=== PATIENT | female | born 1980 | race Caucasian/White ===

== ENCOUNTER 2018-01-23 14:43 | Inpatient (IN) | payer MEDICAID ==
[~2018-01-23] VITALS: Ht 165.1 cm; Wt 58.7 kg
[~2018-01-23 14:43] MED LIST: ALPR2TAB2 PO; IRON SUPP; NAPR-850 PO; TRAZ-137 PO
[2018-01-23] MEDS ORDERED: ZIPRASIDONE 20 MG INJ IM ONE ×2 (16:40→17:00)
[2018-01-23] MEDS ORDERED: SODIUM CHLORIDE 0.9% 1,000ML IVBOLUS ONE (17:30)
[2018-01-23 17:38] LABS: MEAN CORPUSCULAR HEMOGLOBIN 33.7 pg (27.0-34.8); MEAN CORPUSCULAR HGB CONC 34.8 g/dL (32.4-35.8); MEAN CORPUSCULAR VOLUME 96.6 fL (80-100); MEAN PLATELET VOLUME 10.6 fL (7.4-10.4); PLATELET COUNT 235 x10^3/uL (130-400); RED BLOOD COUNT 4.49 x10^6/uL (3.82-5.3); RED CELL DISTRIBUTION WIDTH 12.9 % (9.6-15.2)
[2018-01-23 17:43] LABS: ALANINE AMINOTRANSFERASE 25 U/L (12-78); ALBUMIN 4.1 g/dL (3.4-5.0); ANION GAP 19 mmol/L (5-15); CALCIUM 9.1 mg/dL (8.5-10.1); CHLORIDE 102 mmol/L (98-107); CREATININE 0.59 mg/dL (0.55-1.02)
[2018-01-23 17:48] LABS: ALKALINE PHOSPHATASE 66 U/L (45-117); TOTAL PROTEIN 7.5 g/dL (6.4-8.2)
[2018-01-23 17:49] LABS: SALICYLATE LEVEL < 1.7 mg/dL (2.8-20.0)
[2018-01-23] MEDS ORDERED: POTASSIUM CHLORIDE 40 MEQ in SODIUM CHLORIDE 0.9% 500 ML IV ONE (18:00)
[2018-01-23 18:02] LABS: ACETAMINOPHEN < 2 mcg/mL (10-30)
[2018-01-23] MEDS ORDERED: NS + 40MEQ KCL 1,000 ML IV ONE (18:05)
[2018-01-23 18:07] LABS: BASOPHILS # (AUTO) 0.04 x10^3/uL (0-0.1); BASOPHILS % (AUTO) 0 % (0-1); EOSINOPHILS # (AUTO) 0.07 x10^3/uL (0-0.4); EOSINOPHILS % (AUTO) 1 % (1-7); LYMPHOCYTES # (AUTO) 6.88 x10^3/uL (1-3.4); LYMPHOCYTES % (AUTO) 54 % (22-44); MD SCAN; MONOCYTES # (AUTO) 0.89 x10^3/uL (0.2-0.8); MONOCYTES % (AUTO) 7 % (2-9); NEUTROPHILS # (AUTO) 4.88 x10^3/uL (1.8-6.8); NEUTROPHILS % (AUTO) 38 % (42-75)
[2018-01-23] MEDS ORDERED: ACETAMINOPHEN 325 MG TABLET PO PRN (19:00)
[2018-01-23] MEDS ORDERED: DOCUSATE 100 MG CAPSULE PO PRN (19:00)
[2018-01-23 19:17] VITALS: BP 90/54
[2018-01-23 19:48] LABS: MICROSCOPIC INDICATED
[2018-01-23 20:16] LABS: AMPHETAMINE SCREEN, URINE Negative (Negative); BARBITURATE SCREEN, URINE Negative (Negative); BENZODIAZEPINE SCREEN, URINE Negative (Negative); CANNABINOID SCREEN, URINE Negative (Negative); COCAINE SCREEN, URINE Negative (Negative); METHADONE SCREEN, URINE Negative (Negative); OPIATE SCREEN, URINE Negative (Negative)
[2018-01-23 20:18] LABS: CULTURE INDICATED? YES
[2018-01-23 21:30] VITALS: BP 90/54
[2018-01-23] MEDS: D5%-0.45NACL+KCL 20MEQ 1,000 ML IV SCH (22:22)
[2018-01-24 01:38] VITALS: BP 96/59
[2018-01-24 05:59] LABS: ANION GAP 12 mmol/L (5-15); CALCIUM 8.1 mg/dL (8.5-10.1); CHLORIDE 109 mmol/L (98-107)
[2018-01-24 06:00] LABS: CREATININE 0.48 mg/dL (0.55-1.02)
[2018-01-24 06:05] LABS: BASOPHILS # (AUTO) 0.04 x10^3/uL (0-0.1); BASOPHILS % (AUTO) 0 % (0-1); EOSINOPHILS # (AUTO) 0.05 x10^3/uL (0-0.4); EOSINOPHILS % (AUTO) 1 % (1-7); LYMPHOCYTES % (AUTO) 23 % (22-44); MD NO; MEAN CORPUSCULAR HEMOGLOBIN 32.9 pg (27.0-34.8); MEAN CORPUSCULAR VOLUME 96.9 fL (80-100); MEAN PLATELET VOLUME 10.9 fL (7.4-10.4); MONOCYTES # (AUTO) 0.23 x10^3/uL (0.2-0.8); MONOCYTES % (AUTO) 3 % (2-9); NEUTROPHILS # (AUTO) 6.19 x10^3/uL (1.8-6.8); NEUTROPHILS % (AUTO) 74 % (42-75); PLATELET COUNT 185 x10^3/uL (130-400); RED BLOOD COUNT 3.57 x10^6/uL (3.82-5.3); RED CELL DISTRIBUTION WIDTH 13.2 % (9.6-15.2)
[2018-01-24] MEDS: D5%-0.45NACL+KCL 20MEQ 1,000 ML IV SCH (06:26)
[2018-01-24] MEDS: POTASSIUM CHLORIDE 20 MEQ TAB.ER.PRT PO SCH ×2 (09:00→17:00)
[2018-01-24] MEDS ORDERED: MAGNESIUM SULFATE PMX 4GM/100M 100 ML IV ONE ×2 (09:00→13:00)
[2018-01-24] MEDS: ARIPIPRAZOLE 10 MG TABLET PO SCH (11:30)
[2018-01-24] MEDS: POTASSIUM CHLORIDE 20 MEQ in LACTATED RINGERS 1,000 ML IV SCH (12:42)
[2018-01-24] MEDS ORDERED: POTASSIUM PHOSPHATE 44 MEQ in SODIUM CHLORIDE 0.9% 500 ML IV ONE (14:30)
[2018-01-25] MEDS: POTASSIUM CHLORIDE 20 MEQ in LACTATED RINGERS 1,000 ML IV SCH ×3 (01:08→22:11)
[2018-01-25] MEDS: LORazepam 2 MG/ML, 1ML IVPush PRN ×2 (02:35→10:47)
[2018-01-25 05:02] VITALS: BP 100/61
[2018-01-25] MEDS: ARIPIPRAZOLE 10 MG TABLET PO SCH (09:00)
[2018-01-25 10:23] LABS: MEAN CORPUSCULAR HEMOGLOBIN 33.1 pg (27.0-34.8); MEAN CORPUSCULAR HGB CONC 34.5 g/dL (32.4-35.8); MEAN PLATELET VOLUME 10.2 fL (7.4-10.4); PLATELET COUNT 164 x10^3/uL (130-400); RED BLOOD COUNT 3.72 x10^6/uL (3.82-5.3); RED CELL DISTRIBUTION WIDTH 12.9 % (9.6-15.2)
[2018-01-25 10:33] LABS: ANION GAP 10 mmol/L (5-15); CALCIUM 8.7 mg/dL (8.5-10.1); CHLORIDE 107 mmol/L (98-107); CREATININE 0.35 mg/dL (0.55-1.02)
[2018-01-25 10:34] LABS: MD YES
[2018-01-25 10:37] LABS: LYMPH#(MANUAL) 1.68 x10^3/uL (1-3.4); LYMPHS% (MANUAL) 30 % (22-44); REACTIVE LYMPHS # (MANUAL) 0.17 x10^3/uL (0-0); REACTIVE LYMPHS % (MANUAL) 3 % (0-0)
[2018-01-25 10:39] LABS: <RBC MORPHOLOGY> NORMAL
[2018-01-25 10:40] LABS: <PLATELET ESTIMATE> ADEQUATE; <PLT MORPHOLOGY> NORMAL PLT MORPH; MONOS#(MANUAL) 0.39 x10^3/uL (0.3-2.7); MONOS% (MANUAL) 7 % (2-9); SEG#(MANUAL) 3.36 x10^3/uL (1.8-6.8); SEGS% (MANUAL) 60 % (42-75)
[2018-01-25 10:58] VITALS: BP 104/67
[2018-01-25 11:18] LABS: ALBUMIN 3.3 g/dL (3.4-5.0)
[2018-01-25 11:25] LABS: PREALBUMIN 7.9 mg/dL (20.0-40.0)
[2018-01-25 14:30] VITALS: BP 102/55
[2018-01-25] MEDS ORDERED: POTASSIUM CHLORIDE 20 MEQ TAB.ER.PRT PO ONE (14:30)
[2018-01-25] MEDS ORDERED: POTASSIUM PHOSPHATE 22 MEQ in SODIUM CHLORIDE 0.9% 500 ML IV ONE (14:30)
[2018-01-25 20:34] VITALS: BP 102/60
[2018-01-26 03:54] VITALS: BP 107/51
[2018-01-26] MEDS: POTASSIUM CHLORIDE 20 MEQ in LACTATED RINGERS 1,000 ML IV SCH (06:35)
[2018-01-26] MEDS: LORazepam 2 MG/ML, 1ML IVPush PRN ×3 (06:46→18:16)
[2018-01-26] MEDS: ARIPIPRAZOLE 10 MG TABLET PO SCH (09:00)
[2018-01-26 11:06] LABS: ANION GAP 8 mmol/L (5-15); CALCIUM 8.4 mg/dL (8.5-10.1); CHLORIDE 108 mmol/L (98-107); CREATININE 0.46 mg/dL (0.55-1.02)
[2018-01-26] MEDS ORDERED: POTASSIUM PHOSPHATE 22 MEQ in SODIUM CHLORIDE 0.9% 500 ML IV ONE (12:30)
[2018-01-26] MEDS ORDERED: MAGNESIUM SULFATE PMX 4GM/100M 100 ML IV ONE (12:30)
[2018-01-26] MEDS: MAGNESIUM OXIDE 400 MG TABLET PO SCH (12:30)
[2018-01-26 14:30] VITALS: BP 101/58
[2018-01-26 21:00] VITALS: BP 103/60
[2018-01-27 03:38] VITALS: BP 90/55
[2018-01-27 04:57] LABS: ANION GAP 8 mmol/L (5-15); CHLORIDE 109 mmol/L (98-107)
[2018-01-27] MEDS: MAGNESIUM OXIDE 400 MG TABLET PO SCH (08:32)
[2018-01-27] MEDS: ARIPIPRAZOLE 10 MG TABLET PO SCH (08:32)
[2018-01-27 14:45] VITALS: BP 102/62
[2018-01-27] MEDS: LORazepam 2 MG/ML, 1ML IVPush PRN (19:53)
[2018-01-28] MEDS: MAGNESIUM OXIDE 400 MG TABLET PO SCH (09:00)
[2018-01-28] MEDS: ARIPIPRAZOLE 10 MG TABLET PO SCH (09:00)
[2018-01-28] MEDS: LORazepam 2 MG/ML, 1ML IVPush PRN (09:07)
[2018-01-28 16:00] VITALS: BP 105/68
[2018-01-28] MEDS: LORazepam 2 MG/ML, 1ML IM PRN (16:34)
[2018-01-29] MEDS: LORazepam 2 MG/ML, 1ML IVPush PRN (02:44)
[2018-01-29] MEDS: LORazepam 2 MG/ML, 1ML IM PRN ×2 (07:12→18:07)
[2018-01-29] MEDS: ARIPIPRAZOLE 10 MG TABLET PO SCH (08:55)
[2018-01-29] MEDS: MAGNESIUM OXIDE 400 MG TABLET PO SCH (08:55)
[2018-01-29] MEDS ORDERED: LORazepam 2 MG/ML, 1ML IM ONE (10:00)
[2018-01-29 12:30] LABS: ALANINE AMINOTRANSFERASE 34 U/L (12-78); ALBUMIN 3.2 g/dL (3.4-5.0); ANION GAP 12 mmol/L (5-15); CALCIUM 8.7 mg/dL (8.5-10.1); CHLORIDE 107 mmol/L (98-107); CREATININE 0.52 mg/dL (0.55-1.02)
[2018-01-29 12:32] LABS: ALKALINE PHOSPHATASE 53 U/L (45-117); BILIRUBIN,TOTAL 0.3 mg/dL (0.2-1.0); TOTAL PROTEIN 6.4 g/dL (6.4-8.2)
[2018-01-29] MEDS: NEUTRA PHOS K 250 MG TABLET PO SCH ×2 (13:00→16:00)
[2018-01-30] MEDS: ARIPIPRAZOLE 10 MG TABLET PO SCH (09:00)
[2018-01-30] MEDS: MAGNESIUM OXIDE 400 MG TABLET PO SCH (09:00)
[2018-01-30] MEDS: LORazepam 2 MG/ML, 1ML IM PRN ×2 (11:53→23:55)
[2018-01-31] MEDS: MAGNESIUM OXIDE 400 MG TABLET PO SCH (09:00)
[2018-01-31] MEDS: ARIPIPRAZOLE 10 MG TABLET PO SCH (09:00)
[2018-01-31] MEDS: LORazepam 2 MG/ML, 1ML IM PRN ×3 (10:07→15:44)
[2018-01-31] MEDS ORDERED: LORazepam 2 MG/ML, 1ML IM PRN (12:30)
[2018-01-31 13:49] LABS: ANION GAP 9 mmol/L (5-15); CALCIUM 8.4 mg/dL (8.5-10.1); CHLORIDE 105 mmol/L (98-107); CREATININE 0.47 mg/dL (0.55-1.02)
[2018-01-31] MEDS: HALOPERIDOL 5 MG/ML IM PRN (15:55)
[2018-02-01 06:25] LABS: ANION GAP 8 mmol/L (5-15); CALCIUM 8.6 mg/dL (8.5-10.1); CHLORIDE 108 mmol/L (98-107); CREATININE 0.55 mg/dL (0.55-1.02)
[2018-02-01] MEDS: ARIPIPRAZOLE 10 MG TABLET PO SCH (09:00)
[2018-02-01] MEDS: MAGNESIUM OXIDE 400 MG TABLET PO SCH (09:00)
[2018-02-01 18:43] VITALS: BP 96/55
[2018-02-02 00:25] VITALS: BP 98/60
[2018-02-02 07:51] VITALS: BP 108/71
[2018-02-02] MEDS: ARIPIPRAZOLE 10 MG TABLET PO SCH (10:34)
[2018-02-02] MEDS: MAGNESIUM OXIDE 400 MG TABLET PO SCH (10:34)
[2018-02-02] MEDS: LORazepam 2 MG/ML, 1ML IM PRN (12:59)
[2018-02-02] MEDS: HALOPERIDOL 5 MG/ML IM PRN (13:00)
[2018-02-02 15:57] VITALS: BP 106/69
[2018-02-02 21:26] VITALS: BP 90/52
[2018-02-03] MEDS: MAGNESIUM OXIDE 400 MG TABLET PO SCH (09:00)
[2018-02-03] MEDS: ARIPIPRAZOLE 10 MG TABLET PO SCH (09:00)
[2018-02-03 15:30] VITALS: BP 113/69
[2018-02-03 16:45] VITALS: BP 95/56
[2018-02-03 20:00] VITALS: BP 136/71
[2018-02-04 01:52] VITALS: BP 99/76
[2018-02-04 07:27] VITALS: BP 101/64
[2018-02-04] MEDS: ARIPIPRAZOLE 10 MG TABLET PO SCH (09:00)
[2018-02-04] MEDS: MAGNESIUM OXIDE 400 MG TABLET PO SCH (09:00)
[2018-02-04 12:55] VITALS: BP 94/58
[2018-02-04 19:30] VITALS: BP 93/59
[2018-02-05] MEDS: LORazepam 2 MG/ML, 1ML IM PRN ×2 (01:40→10:56)
[2018-02-05 07:19] VITALS: BP 83/43
[2018-02-05] MEDS: ARIPIPRAZOLE 10 MG TABLET PO SCH (07:36)
[2018-02-05] MEDS: MAGNESIUM OXIDE 400 MG TABLET PO SCH (07:37)
[2018-02-05 07:43] VITALS: BP 96/63
[2018-02-05] MEDS: HALOPERIDOL 5 MG/ML IM PRN ×2 (10:56→10:57)
[2018-02-05 12:46] VITALS: BP 84/52
[2018-02-06 04:58] VITALS: BP 95/60
[2018-02-06] MEDS: LORazepam 1MG TABLET PO PRN ×3 (05:30→18:09)
[2018-02-06 07:19] VITALS: BP 85/41
[2018-02-06 07:20] VITALS: BP 81/47
[2018-02-06] MEDS: MAGNESIUM OXIDE 400 MG TABLET PO SCH (09:00)
[2018-02-06] MEDS: ARIPIPRAZOLE 10 MG TABLET PO SCH (09:00)
[2018-02-06 12:20] VITALS: BP 96/59
[2018-02-06 19:28] VITALS: BP 97/64
[2018-02-07] MEDS: LORazepam 1MG TABLET PO PRN ×3 (00:12→22:05)
[2018-02-07 02:35] VITALS: BP 106/71
[2018-02-07] MEDS: MAGNESIUM OXIDE 400 MG TABLET PO SCH (07:22)
[2018-02-07] MEDS: ARIPIPRAZOLE 10 MG TABLET PO SCH (07:22)
[2018-02-07 07:25] VITALS: BP 100/66
[2018-02-07] MEDS ORDERED: HALOPERIDOL 5 MG TABLET PO PRN (09:30)
[2018-02-07] MEDS: LORazepam 2 MG/ML, 1ML IM PRN (19:43)
[2018-02-07 19:47] VITALS: BP 102/69
[2018-02-08 02:37] VITALS: BP 95/63
[2018-02-08] MEDS: LORazepam 1MG TABLET PO PRN ×3 (02:40→10:56)
[2018-02-08] MEDS: MAGNESIUM OXIDE 400 MG TABLET PO SCH (07:42)
[2018-02-08] MEDS: ARIPIPRAZOLE 10 MG TABLET PO SCH (07:42)
[2018-02-08 07:45] VITALS: BP 98/65
[2018-02-08] MEDS ORDERED: MAGN400T7 PO (11:29)
[2018-02-08] MEDS ORDERED: ARIP10TA33 PO (11:29)
== END 2018-02-08 13:02 | DRG 885 ==
LOC: MERGE 14:43 → EDBD 14:43 → ED 15:21 → EDIP 18:09 → 4WST 19:03
PROVIDERS: ADMIT Hospitalist; ATTEND Hospitalist
DX: F23 Brief psychotic disorder (principal); E43 Unspecified severe protein-calorie malnutrition; E87.2 Acidosis; Z68.21 Body mass index [BMI] 21.0-21.9, adult; E83.39 Other disorders of phosphorus metabolism; E83.42 Hypomagnesemia; E87.6 Hypokalemia; F32.9 Major depressive disorder, single episode, unspecified; I10 Essential (primary) hypertension; Z53.20 Procedure and treatment not carried out because of patient's decision for unspecified reasons; Z81.8 Family history of other mental and behavioral disorders; Z90.710 Acquired absence of both cervix and uterus; I45.81 Long QT syndrome
CPT/HCPCS: 36415; 80048; 80053; 80307; 80329; 81001; 82040; 83735; 84100; 84134; 84439; 84443; 84703; 85025; 87086; 93005; 96372; 99285; G0378; J3480; J3486; G0480; J1630; J2060; J3475; J7030; J7040; J7120

== ENCOUNTER 2019-08-28 08:47 | Emergency (ER) | payer MEDICAID ==
[~2019-08-28] VITALS: Ht 165.1 cm; Wt 71.1 kg
[~2019-08-28 08:47] MED LIST changes: +ARIP10TA33 PO; +MAGN400T9 PO; -TRAZ-137 PO; +TRAZ-175 PO
--- NOTE | 2019-08-28 09:50 | NUR ---
PT PRESENTS TO ED WITH C/O SCALP PAIN, STATES THIS HAS BEEN PRESENT FOR YEARS. PT DEMONSTRATES DELUSIONAL AND PARANOID SPEECH, VERY DIFFICULT TO OBTAIN INFORMATION FROM PT SHE CONTINUES TO SPEAK IN A TANGENTIAL MANNER. PT DENIES MEDICAL HISTORY, SPEAKS OF A MAJOR SURGERY SHE HAD "THEY IMPLANTED THINGS IN ME" , DOES NOT SPECIFY FURTHER REGARDING TYPE OF SURGERY OR DATE OF SURGERY. PT AMBULATORY WITH STEADY GAIT, CALM AND COOPERATIVE. PT DENIES PSYCIATRIC HISTORY OR COMPLAINT. PT RESTING ON GURNEY, AWAITING MD ASSESSMENT AND ORDERS.
--- NOTE | 2019-08-28 10:56 | NUR ---
PT A&O, RESPS EVEN AND UNLABORED, TANGENTIAL AND DELUSIONAL SPEECH CONTINUES. HEADACHE UNCHANGED. NEURO INTACT, 4/5 STRENGTH TO ALL EXTREMITIES, NO DRIFT, BILATERAL GRASP EQUAL, FACE SYMMETRICAL, PUPILS EQUAL, ROUND AND REACTIVE. BP AND SPO2 MONITORS IN PLACE. AWAITING CT AND DISPO.
--- NOTE | 2019-08-28 11:01 | NUR ---
CT PAGED TO COLLECT PT, PER CT PT IS 2ND IN QUEUE. PT UPDATED WITH POC.
--- NOTE | 2019-08-28 11:26 | NUR ---
PT TO CT AT THIS TIME.
--- NOTE | 2019-08-28 11:40 | NUR ---
PT BACK FROM CT, NADN.
--- NOTE | 2019-08-28 12:13 | NUR ---
CT scan complete, results reviewed by EDMD. pt to be discharged, awaiting paperwork from provider at this time.
--- NOTE | 2019-08-28 12:30 | NUR ---
DC PAPERWORK STILL NOT READY FOR PT, REQUESTED FROM .
--- NOTE | 2019-08-28 13:05 | NUR ---
dc paperwork still not ready at this time, MD aware of need to provide.
[2019-08-28] MEDS ORDERED: HYDROcodone/APAP 5/325 TABLET ONE (13:25)
[2019-08-28] MEDS ORDERED: HYDROcodone/APAP 5/325 TABLET PO ONE (13:30)
[2019-08-28 13:33] VITALS: BP 110/69
--- NOTE | 2019-08-28 13:34 | NUR ---
PT MEDICATED PER EMAR, TOLERATED WELL. SPO2 MONITOR IN PLACE. NEURO INTACT UPON REASSESSMENT. PT A&O, RESPS EVEN AND UNLABORED, NADN. AWAITING PAPERWORK FOR DC.
== END 2019-08-28 14:05 | disposition home or self-care (01) ==
LOC: ED 10:40
DX: R51 Headache (principal); F17.200 Nicotine dependence, unspecified, uncomplicated; E87.6 Hypokalemia; Z90.89 Acquired absence of other organs; Z90.710 Acquired absence of both cervix and uterus
CPT/HCPCS: 70450; 99285